=== PATIENT | male | born 1970 | race Two or more races ===

== ENCOUNTER 2024-04-23 00:21 | Emergency (ER) | payer OTHER ==
[~2024-04-23] VITALS: Ht 172.7 cm; Wt 130.0 kg
[2024-04-23] MEDS: TETANUS-DIPTH-ACEL PERTUSSIS 0.5ML SYR Tdap IM ONE (00:45)
[2024-04-23] MEDS: HYDROmorphone HCL 2 MG/ML VL/or syr IM ONE (01:00)
[2024-04-23] MEDS ORDERED: IBUP-1455 PO (01:18)
[2024-04-23] MEDS ORDERED: HYDR-4798 PO (01:18)
[2024-04-23] MEDS: ONDANSETRON HCL 4 MG/2 ML VIAL IV ONE (01:43)
[2024-04-23 01:44] VITALS: PULSE 91; TEMP 98.2; O2SAT 96
[2024-04-23 01:54] VITALS: BP 138/78; PULSE 97; RESP 16
== END 2024-04-23 02:56 | disposition home or self-care (01) ==
LOC: ER 00:21 → EDBD 00:21 → ER 02:56
DX: S82.52XA Displaced fracture of medial malleolus of left tibia, initial encounter for closed fracture (principal); W23.0XXA Caught, crushed, jammed, or pinched between moving objects, initial encounter; Y93.89 Activity, other specified; Y92.89 Other specified places as the place of occurrence of the external cause; Y99.0 Civilian activity done for income or pay
CPT/HCPCS: 29515; 73562; 73610; 73630; 90471; 90715; 96372; 96374; 99284; J1170; J2405